=== PATIENT | female | born 2000 | race Two or more races ===

== ENCOUNTER → 2024-04-21 | Outpatient (CLI) | payer BC, SELFPAY ==
[2024-04-21 12:12] LABS: Basophils % (Auto) 0 % (0-2.5); Eosinophils % (Auto) 0 % (0-10); Hematocrit 33.8 % (36.0-46.0); Hemoglobin 11.6 g/dL (12.0-16.0); Immature Granulocytes % (Auto) 2 % (0-0); Immature Granulocytes Auto 0.17 Thou/mm3 (0.00-0.00); Lymphocytes # (Auto) 1.5 Thou/mm3 (1.0-4.8); Lymphocytes % (Auto) 16 % (10-50); Mean Corpuscular HGB Conc 34.3 g/dl (31.0-37.0); Mean Corpuscular Volume 85 fL (80-100); Monocytes # (Auto) 0.8 Thou/mm3 (0.0-0.8); Monocytes % (Auto) 8 % (0-12); Neutrophils # (Auto) 6.6 Thou/mm3 (1.8-7.7); Neutrophils % (Auto) 73 % (37-80); Nucleated Red Blood Cell % 0 /100 WBC (0); Platelet Count 309 Thou/mm3 (140-440); RDW Standard Deviation 44.4 fL (36.4-46.3); White Blood Count 9.1 Thou/mm3 (3.6-11.0)
[2024-04-21 12:21] LABS: Alanine Aminotransferase 12 U/L (10-49); Albumin, Serum 4.1 gm/dL (3.5-5.0); Albumin/Globulin Ratio 1.6 (1.2-2.2); Alkaline Phosphatase 72 U/L (46-116); Anion Gap 8 (7-16); Aspartate Amino Transferase 15 U/L (0-34); BUN/Creatinine Ratio 8 Ratio (12-20); Bilirubin,Total 0.7 mg/dL (0.3-1.2); Blood Urea Nitrogen 5 mg/dL (9-23); Calcium 9.3 mg/dL (8.3-10.6); Calcium (Corrected) 9.3 mg/dL (8.5-10.1); Carbon Dioxide 24.3 mMol/L (20.0-31.0); Chloride 105 mMol/L (98-107); Creatinine (Component) 0.6 mg/dL (0.6-1.3); Fibrinogen 596 mg/dL (175-375); Globulin 2.6 gm/dL (2.3-3.5); Glucose 101 mg/dL (74-106); INR 0.9 (0.9-1.3); Osmolality,Calculated 271 (275-295); Potassium 3.6 mMol/L (3.4-5.1); Prothrombin Time 10.3 Seconds (9.0-12.2); Sodium 137 mMol/L (136-145); Total Protein 6.7 gm/dL (5.7-8.2); eGFR > 60 See Note
[2024-04-26 22:03] LABS: Sjogren's antibody (SS-A) <1.0 NEG AI (<1.0 NEGATIVE)
[2024-04-27 07:01] LABS: Sjogren's Antibody (SS-B) <1.0 NEG AI (<1.0 NEGATIVE)
== END | disposition home or self-care (01) ==
LOC: COPL 11:17
PROVIDERS: PCP Registered Nurse Community Health; Referring Provider Physician Assistant Medical; Visit Provider Physician Assistant Medical
DX: M34.1 CR(E)ST syndrome (principal)
CPT/HCPCS: 36415; 80053; 84550; 85025; 85384; 85610; 85730; 86235

== ENCOUNTER 2024-06-23 12:40 | Outpatient (CLI) | payer MEDICAID, SELFPAY ==
[2024-06-23 12:40] VITALS: BP 126/69; PULSE 82; RESP 18; RESP 99; TEMP 37
[2024-06-23 13:36] VITALS: BMI 32.1
== END 2024-06-23 13:50 | disposition home or self-care (01) ==
LOC: S4S1 12:41 → S4SX 12:41
PROVIDERS: Referring Provider Specialist; Visit Provider Specialist
DX: O36.8130 Decreased fetal movements, third trimester, not applicable or unspecified (principal); Z3A.31 31 weeks gestation of pregnancy
CPT/HCPCS: 59025

== ENCOUNTER 2024-07-04 22:28 | Observation (INO) | payer MEDICAID, SELFPAY ==
[2024-07-04] VITALS (10 sets, daily range): BP systolic 125; BP diastolic 81; PULSE 80–114; RESP 18; TEMP 36.7; O2SAT 94–99; BMI 32.3
[2024-07-04] MEDS: TERBUTALINE SULF INJ 1 MG/ML VIAL 0.25 MG SC (23:31)
[2024-07-04 23:40] LABS: Collection Type, Urine Clean Catch
[2024-07-05] VITALS (8 sets, daily range): PULSE 86–103; O2SAT 98–100
[2024-07-05 00:04] LABS: Bilirubin,Urine Negative (Negative); Blood,Urine Negative (Negative); Clarity,Urine Turbid (Clear/Hazy); Color,Urine Lt-Yellow (Lt Yel-Yel); Glucose, Urine Negative (Negative); Ketones,Urine 1+ (Negative); Leukocyte Esterase,Urine Negative (Negative); Nitrite,Urine Negative (Negative); Protein,Urine Negative (Neg - Trace); RBC,Urine 3 /hpf (0-3); Specific Gravity,Urine 1.016 (1.001-1.035); Squamous Epithelial Cell,Urine 8 /hpf (0-5); Urobilinogen,Urine Negative mg/dL (0.0-1.0); WBC,Urine 5 /hpf (0-5)
[2024-07-05 00:11] LABS: FFN Specimen Descripton Bloody/Pink/Red
[2024-07-05] MEDS: BETAMET ACET/BETAMET NA PH (Celestone) 6 MG/ML VIAL 12 MG IM (02:04)
== END 2024-07-05 02:12 | disposition home or self-care (01) ==
PROVIDERS: Admitting Provider Specialist; Visit Provider Specialist
DX: O26.893 Other specified pregnancy related conditions, third trimester (principal); Z3A.33 33 weeks gestation of pregnancy; R10.30 Lower abdominal pain, unspecified
CPT/HCPCS: 59025; 59899; 81001; 82731; 96372; J0702; J3105

== ENCOUNTER 2024-07-05 21:17 | Outpatient (CLI) | payer MEDICAID, SELFPAY ==
[2024-07-05 21:23] VITALS: BP 114/62; PULSE 89; RESP 17; RESP 98; TEMP 36.9
[2024-07-05 21:26] VITALS: TEMP 36.9; BMI 32.2
[2024-07-05] MEDS: BETAMET ACET/BETAMET NA PH (Celestone) 6 MG/ML VIAL 12 MG IM (22:10)
== END 2024-07-05 22:17 | disposition home or self-care (01) ==
LOC: S4S1 21:20 → S4SX 21:31
PROVIDERS: Referring Provider Specialist; Visit Provider Specialist
DX: Z34.03 Encounter for supervision of normal first pregnancy, third trimester (principal); Z36.9 Encounter for antenatal screening, unspecified; Z3A.33 33 weeks gestation of pregnancy
CPT/HCPCS: 59025; 96372; J0702

== ENCOUNTER 2024-07-12 20:10 | Observation (INO) | payer MEDICAID, SELFPAY ==
[2024-07-12] VITALS (40 sets, daily range): BP systolic 115–129; BP diastolic 66–84; PULSE 105–151; RESP 24–98; TEMP 37.4–38.3; O2SAT 89–100; BMI 31.9
[2024-07-12] MEDS: RINGERS LACTATED 1000 ML 1,000 ML 100 ML IV ×2 (20:40→22:40)
[2024-07-12 20:45] LABS: ROM Kit Lot # 57809118; ROM Swab Mixed By: MARTB3; Swb Mxed in Solvent 1 min? Yes
--- NOTE | 2024-07-12 20:46 | XR_ITS ---
Examination: Biophysical profile, ultrasound Date and time of exam: July 12, 2024 10:20 PM Indications: Pelvic contractions and fever today Technique: Multiple transabdominal sonographic images of the pelvis abdomen obtained. Attention is directed to the breathing movement, gross body movement, amniotic fluid volume and tone. Findings: Amniotic fluid index 18.8 cm Total biophysical profile is 8 of 8. breathing movement is 2. Gross body movement is 2. tone is 2. Qualitative amniotic fluid volume is 2 Impression: Biophysical profile is 8 of 8.
--- NOTE | 2024-07-12 20:46 | XR_ITS ---
Examination: Complete OB ultrasound greater than 14 weeks Date and time of exam: July 12, 2024 at 2155 hrs. Indications: Pelvic contractions and fever today Findings: Viable intrauterine single fetus with single amniotic sac presentation cephalic Cardiac motion 137 BPM Placenta fundal grade 1 Umbilical cord insertion seen Amniotic fluid index 16.5 cm Cervix 3.4 cm Ovaries obscured by bowel gas. Composite estimated gestational age based on BPD, head circumference, abdominal circumference, femur length is 34 weeks 2 days Estimated weight 2375.3 g. Survey of intracranial anatomy, spinal anatomy, abdominal anatomy, four-chamber heart performed with no abnormalities identified. Impression: Viable intrauterine gestation cephalic presentation Estimated gestational age 34 weeks 2 days.
[2024-07-12 20:53] LABS: Rupture of Fetal Membranes Negative (Negative)
[2024-07-12 21:02] LABS: Collection Type, Urine Clean Catch
[2024-07-12 21:12] LABS: Basophils # (Auto) 0.1 Thou/mm3 (0.0-0.2); Basophils % (Auto) 0 % (0-2.5); Eosinophils % (Auto) 0 % (0-10); Hematocrit 38.6 % (36.0-46.0); Immature Granulocytes % (Auto) 3 % (0-0); Immature Granulocytes Auto 0.43 Thou/mm3 (0.00-0.00); Lymphocytes # (Auto) 1.6 Thou/mm3 (1.0-4.8); Lymphocytes % (Auto) 10 % (10-50); Mean Corpuscular HGB Conc 33.7 g/dl (31.0-37.0); Mean Corpuscular Hemoglobin 28.4 pg (25.0-35.0); Mean Corpuscular Volume 84 fL (80-100); Monocytes # (Auto) 1.5 Thou/mm3 (0.0-0.8); Monocytes % (Auto) 10 % (0-12); Neutrophils # (Auto) 11.9 Thou/mm3 (1.8-7.7); Neutrophils % (Auto) 77 % (37-80); Nucleated Red Blood Cell % 0 /100 WBC (0); Platelet Count 271 Thou/mm3 (140-440); RDW Standard Deviation 44.4 fL (36.4-46.3); Red Blood Count 4.58 Miln/mm3 (4.00-5.20); White Blood Count 15.5 Thou/mm3 (3.6-11.0)
[2024-07-12] MEDS: fentaNYL CIT INJ 50 mCg/ML AMP 2ML 100 MCG IV (21:14)
[2024-07-12] MEDS: NIFEdipine 10 MG CAPSULE PO (21:15)
[2024-07-12 21:16] LABS: Bacteria,Urine Rare; Bilirubin,Urine Negative (Negative); Blood,Urine Negative (Negative); Clarity,Urine Clear (Clear/Hazy); Glucose, Urine Negative (Negative); Ketones,Urine 2+ (Negative); Leukocyte Esterase,Urine Positive (Negative); Nitrite,Urine Negative (Negative); Protein,Urine Trace (Neg - Trace); RBC,Urine 1 /hpf (0-3); Squamous Epithelial Cell,Urine 14 /hpf (0-5); Urobilinogen,Urine Negative mg/dL (0.0-1.0); WBC,Urine 5 /hpf (0-5)
[2024-07-12 21:19] LABS: Color,Urine Amber (Lt Yel-Yel)
[2024-07-12] MEDS: ACETAMINOPHEN 325 MG TABLET 650 MG PO (21:25)
--- NOTE | 2024-07-12 21:26 | XR_ITS ---
Examination: AP chest single view Technique one AP portable upright chest single view Exam date and time: July 12, 2024 2133 hrs. Indications: Fever today Findings: Artifacts over the upper chest Normal heart size The osseous structures are intact Impression: Repeat this study without the artifacts over the upper chest
[2024-07-12 21:30] LABS: Alanine Aminotransferase 12 U/L (10-49); Albumin, Serum 4.2 gm/dL (3.5-5.0); Albumin/Globulin Ratio 1.4 (1.2-2.2); Alkaline Phosphatase 158 U/L (46-116); Anion Gap 12 (7-16); Aspartate Amino Transferase 15 U/L (0-34); BUN/Creatinine Ratio 13 Ratio (12-20); Blood Urea Nitrogen 8 mg/dL (9-23); Calcium 9.7 mg/dL (8.3-10.6); Calcium (Corrected) 9.7 mg/dL (8.5-10.1); Carbon Dioxide 21.3 mMol/L (20.0-31.0); Chloride 101 mMol/L (98-107); Creatinine (Component) 0.6 mg/dL (0.6-1.3); Glucose 77 mg/dL (74-106); LDH (Lactate Dehydrogenase) 200 U/L (120-246); Osmolality,Calculated 265 (275-295); Potassium 3.8 mMol/L (3.4-5.1); Sodium 134 mMol/L (136-145); Total Protein 7.2 gm/dL (5.7-8.2); eGFR > 60 See Note
[2024-07-12 21:40] LABS: FFN Specimen Descripton Clr Colrless Aqueous; Fetal Fibronectin Negative (Negative)
[2024-07-12 21:44] LABS: Fibrinogen 574 mg/dL (175-375); INR 1.2 (0.9-1.3); Partial Thromboplastin Time 26.2 Seconds (22.0-36.0); Prothrombin Time 12.6 Seconds (9.0-12.2)
[2024-07-12 22:01] LABS: Lactate (Lactic Acid) 1.2 mMol/L (0.4-2.0)
--- NOTE | 2024-07-12 22:05 | EKG_ITS ---
[facility] Test Date: 2024-07-12 Pat Name: SHAINA URBINA Department: Room: S945-A Gender: Female Manufacturing Operations Manager: GEORGIE : 2000 Requested By: Darwin Esparza Order Number: [id number] Reading MD: Darwin Esparza Measurements Intervals [place] Rate: 136 P: 41 [place]: 157 QRS: 224 QRSD: 98 T: 212 QT: 331 QTc: 499 Interpretive Statements SINUS TACHYCARDIA WITH FREQUENT VENTRICULAR PREMATURE COMPLEXES MARKED RIGHT AXIS DEVIATION [QRS AXIS > 100] PATTERN CONSISTENT WITH PULMONARY DISEASE MARKED ST DEPRESSION, CONSIDER SUBENDOCARDIAL INJURY [0.2+ mV ST DEPRESSION] Compared to ECG 11/20/2023 09:19:21 Ventricular premature complex(es) now present Right-axis deviation now present ST (T wave) deviation now present Sinus rhythm no longer present Sinus arrhythmia no longer present /store/S0/[id number]/ecg/[id number].pdf
[2024-07-12 22:14] LABS: COVID-19 Antigen (In-House) Negative (Negative); Influenza A Ag Negative; Influenza B Ag Negative
[2024-07-12 23:15] LABS: Procalcitonin 0.06 ng/ml (0.0-0.49)
[2024-07-13] VITALS (90 sets, daily range): BP systolic 105–140; BP diastolic 56–76; PULSE 96–136; RESP 16–22; TEMP 36.6–38.1; O2SAT 92–100
[2024-07-13] MEDS: SODIUM CHLORIDE 0.9% 1000 ML 1,000 ML 125 ML IV ×3 (01:14→21:30)
[2024-07-13] MEDS: CEFTRIAXONE IV (01:28)
[2024-07-13] MEDS: SODIUM CHLORIDE 0.9% IV (01:28)
[2024-07-13] MEDS: NIFEdipine 10 MG CAPSULE PO ×5 (02:03→21:33)
[2024-07-13] MEDS: ACETAMINOPHEN 325 MG TABLET 650 MG PO ×3 (03:10→22:12)
[2024-07-13 06:55] LABS: Basophils # (Auto) 0.1 Thou/mm3 (0.0-0.2); Basophils % (Auto) 1 % (0-2.5); Eosinophils % (Auto) 0 % (0-10); Hematocrit 31.8 % (36.0-46.0); Hemoglobin 10.8 g/dL (12.0-16.0); Immature Granulocytes % (Auto) 3 % (0-0); Lymphocytes % (Auto) 8 % (10-50); Mean Corpuscular Hemoglobin 28.6 pg (25.0-35.0); Mean Corpuscular Volume 84 fL (80-100); Monocytes # (Auto) 1.4 Thou/mm3 (0.0-0.8); Monocytes % (Auto) 11 % (0-12); Neutrophils # (Auto) 9.3 Thou/mm3 (1.8-7.7); Neutrophils % (Auto) 77 % (37-80); Nucleated Red Blood Cell % 0 /100 WBC (0); Platelet Count 226 Thou/mm3 (140-440); RDW Standard Deviation 44.5 fL (36.4-46.3); Red Blood Count 3.78 Miln/mm3 (4.00-5.20); White Blood Count 12.2 Thou/mm3 (3.6-11.0)
[2024-07-13 07:08] LABS: Alanine Aminotransferase 9 U/L (10-49); Albumin, Serum 3.3 gm/dL (3.5-5.0); Albumin/Globulin Ratio 1.4 (1.2-2.2); Alkaline Phosphatase 129 U/L (46-116); Anion Gap 10 (7-16); Aspartate Amino Transferase 16 U/L (0-34); BUN/Creatinine Ratio 10 Ratio (12-20); Bilirubin,Total 0.8 mg/dL (0.3-1.2); Blood Urea Nitrogen 6 mg/dL (9-23); Calcium 8.7 mg/dL (8.3-10.6); Calcium (Corrected) 9.3 mg/dL (8.5-10.1); Carbon Dioxide 21.4 mMol/L (20.0-31.0); Chloride 104 mMol/L (98-107); Creatinine (Component) 0.6 mg/dL (0.6-1.3); Estimated Creatinine Clearance 145.2 mL/min (>60); Globulin 2.3 gm/dL (2.3-3.5); Glucose 118 mg/dL (74-106); Osmolality,Calculated 268 (275-295); Potassium 3.5 mMol/L (3.4-5.1); Sodium 135 mMol/L (136-145); Total Protein 5.6 gm/dL (5.7-8.2); eGFR > 60 See Note
--- NOTE | 2024-07-13 10:20 | ESPR_ITS ---
RE: SHAINA URBINA : 2000 DATE OF SERVICE: 07/13/2024 SUBJECTIVE: The patient is no longer having abdominal pain. The only discomfort she has is at the superior part of the buttocks crease where she reports tenderness and thickening of the skin in that area. She denies feeling any contractions. She denies any abdominal pain. She reports normal movement. She denies any leaking or bleeding. She denies any dysuria or flank pain. She denies any headache, stiff neck, photophobia, sore throat, cough, chest pain, or shortness of breath. She denies any nausea, vomiting, or diarrhea. She has got a good appetite and is tolerating a regular diet. She is passing flatus and voiding without difficulty. OBJECTIVE: Vitals Signs: Blood pressure 117/67, heart rate 109, respirations 18, T-max is 100.9. Temperature now is 98.0. HEENT: Oropharynx and sclerae are clear. Lungs: Clear to auscultation bilaterally. Heart: Regular rhythm. Mild tachycardia. Abdomen: Fundus consistent with 34 weeks gestation, nontender, soft. No guarding, rebound, or rigidity. Flank: No CVA tenderness. Skin: Slight thickening and erythema in the buttocks crease. LABORATORY DATA: Hemoglobin is 10.8, white blood cell count is 12.2. Creatinine is 0.6. fibronectin is negative. AmniSure is negative. Rapid influenza A test is negative. Rapid COVID test is negative. ASSESSMENT: 1. Intrauterine at 34 weeks and 3 days. 2. Pilonidal cyst with possible early abscess. 3. Urinary tract infection. 4. Threatened labor, status post betamethasone on 07/04/2024 and 07/05/2024. PLAN: Continue IV antibiotics in the form of Rocephin 1 g q.12h. Follow blood culture and urine culture results. Consider continue nifedipine 10 mg p.o. q.4h. for tocolysis. I discussed with the patient the nature of her condition and recommended treatment plan. All questions are answered. DT: 08:06:50 TT: 10:18:00 Ref: [id number] - TID: [id number]
[2024-07-13 11:01] LABS: INR 0.9 (0.9-1.3); Partial Thromboplastin Time 27.9 Seconds (22.0-36.0); Prothrombin Time 10.2 Seconds (9.0-12.2)
[2024-07-13 11:28] LABS: Fibrinogen 660 mg/dL (175-375)
[2024-07-13] MEDS: cefTRIAXone 1,000 MG in SODIUM CHLORIDE 0.9% (P) 50 ML 100 MG IV (13:48)
[2024-07-13] MEDS: metroNIDAZOLE/NS 500 MG IVPB 500 MG/100 ML BAG 200 MG IV (21:32)
[2024-07-14] VITALS (59 sets, daily range): BP systolic 101–123; BP diastolic 54–72; PULSE 71–136; RESP 18; TEMP 36.4–37.6; O2SAT 96–100
[2024-07-14] MEDS: cefTRIAXone 1,000 MG in SODIUM CHLORIDE 0.9% (P) 50 ML 100 MG IV ×2 (01:29→13:32)
[2024-07-14] MEDS: NIFEdipine 10 MG CAPSULE PO ×6 (01:29→21:51)
[2024-07-14] MEDS: ACETAMINOPHEN 325 MG TABLET 650 MG PO ×2 (01:59→06:04)
[2024-07-14 05:21] LABS: Basophils # (Auto) 0.1 Thou/mm3 (0.0-0.2); Basophils % (Auto) 1 % (0-2.5); Eosinophils % (Auto) 0 % (0-10); Hematocrit 34.6 % (36.0-46.0); Hemoglobin 11.6 g/dL (12.0-16.0); Immature Granulocytes % (Auto) 5 % (0-0); Lymphocytes # (Auto) 1.4 Thou/mm3 (1.0-4.8); Lymphocytes % (Auto) 13 % (10-50); Mean Corpuscular HGB Conc 33.5 g/dl (31.0-37.0); Mean Corpuscular Hemoglobin 28.4 pg (25.0-35.0); Mean Corpuscular Volume 85 fL (80-100); Monocytes # (Auto) 1.6 Thou/mm3 (0.0-0.8); Monocytes % (Auto) 15 % (0-12); Neutrophils # (Auto) 6.9 Thou/mm3 (1.8-7.7); Neutrophils % (Auto) 66 % (37-80); Nucleated Red Blood Cell % 0 /100 WBC (0); Platelet Count 200 Thou/mm3 (140-440); RDW Standard Deviation 45.9 fL (36.4-46.3); Red Blood Count 4.08 Miln/mm3 (4.00-5.20); White Blood Count 10.5 Thou/mm3 (3.6-11.0)
[2024-07-14 05:57] LABS: Alanine Aminotransferase 9 U/L (10-49); Albumin, Serum 3.6 gm/dL (3.5-5.0); Albumin/Globulin Ratio 1.5 (1.2-2.2); Alkaline Phosphatase 140 U/L (46-116); Anion Gap 11 (7-16); Aspartate Amino Transferase 15 U/L (0-34); BUN/Creatinine Ratio 10 Ratio (12-20); Bilirubin,Total 0.6 mg/dL (0.3-1.2); Blood Urea Nitrogen 6 mg/dL (9-23); Calcium 9.3 mg/dL (8.3-10.6); Calcium (Corrected) 9.6 mg/dL (8.5-10.1); Carbon Dioxide 21.4 mMol/L (20.0-31.0); Chloride 104 mMol/L (98-107); Creatinine (Component) 0.6 mg/dL (0.6-1.3); Estimated Creatinine Clearance 145.2 mL/min (>60); Globulin 2.4 gm/dL (2.3-3.5); Glucose 97 mg/dL (74-106); Osmolality,Calculated 269 (275-295); Potassium 4.1 mMol/L (3.4-5.1); Sodium 136 mMol/L (136-145); eGFR > 60 See Note
[2024-07-14] MEDS: metroNIDAZOLE/NS 500 MG IVPB 500 MG/100 ML BAG 200 MG IV ×3 (06:05→21:51)
--- NOTE | 2024-07-14 07:15 | ESHP_ITS ---
RE: SHAINA URBINA : 2000 DATE OF ADMISSION: 07/12/2024 HISTORY OF PRESENT ILLNESS: This is a 23-year-old 1 para 0 with due date of 08/21/2024 with intrauterine at 34 weeks and 2 days, who presents to labor and delivery complaining of abdominal pain and is noted to have tachycardia with temperature of 100.9. She has a regular contractions. She denies any leaking or bleeding. She reports normal movement. She denies any nausea or vomiting. The patient was treated for positive fibronectin for threatened labor on 07/04/2024 and 07/05/2024 with betamethasone. The patient's care was complicated by abnormally elevated alpha-fetoprotein. She underwent maternal medicine ultrasound on 05/13/2024, which revealed normal anatomy. ALLERGIES: NO KNOWN DRUG ALLERGIES. MEDICATIONS: 1. multivitamin 1 p.o. daily. 2. Aspirin 81 mg 1 p.o. daily. SOCIAL HISTORY: She is . She denies any alcohol or drug use or smoking. PAST MEDICAL HISTORY: CREST syndrome and acne. FAMILY HISTORY: Breast cancer and heart disease. PAST SURGICAL HISTORY: Denies. REVIEW OF SYSTEMS: She denies any chest pain, palpitations, cough, fever, shortness of breath or lower extremity pain. PHYSICAL EXAMINATION: VITAL SIGNS: Blood pressure is 122/66, heart rate 122, respirations 18, temperature is 100.9, and pulse oximetry is 100% on room air. LUNGS: Clear to auscultation bilaterally. HEART: Regular rate and rhythm. ABDOMEN: Tender. No guarding, rebound or rigidity. EXTREMITIES: Nontender. SKIN: No gross rashes or lesions. NEUROLOGIC: No focal deficit. ASSESSMENT AND PLAN: Intrauterine at 34 weeks and 2 days, abdominal pain, and fever. Labor. Septic workup. OB ultrasound. Continuous monitoring. DT: 21:22:47 TT: 21:57:00 Ref: [id number] - TID: [id number] MTDD
[2024-07-14 07:38] LABS: INR 0.9 (0.9-1.3); Prothrombin Time 10.1 Seconds (9.0-12.2)
--- NOTE | 2024-07-14 07:38 | ESPR_ITS ---
Documentation for date of: 07/14/24 SUPERVISOR COREMAKER Subjective Subjective Interval history: Pain and drainage from upper gluteal crease. No abdominal pain. No vaginal leaking or bleeding. Does not feel any contractions. Exam Vital Signs Temp Pulse Resp BP Pulse Ox 97.6 F 71 18 101/63 97 07/14/24 06:04 07/14/24 06:03 07/14/24 06:01 07/14/24 06:03 07/14/24 06:22 Routine HEENT Exam Comments: Oropharynx sclera clear Routine Respiratory Exam Comments: CTA B/L Routine Cardiovascular Exam Comments: RRR Routine Abdominal Exam Comments: gravid , 34 cm , + FCA. Soft. nontender. Additional findings Additional findings: Upper Gluteal Crease: 3 x 3 cm tender abscess draining purulent material. Urinary Catheter Management Cath placed during this visit: no SUPERVISOR COREMAKER - PN: Obj Data Labs 07/14/24 04:56 07/14/24 04:56 Labs: Laboratory Results - last 24 hr 07/13/24 07/13/24 07/14/24 08:32 19:33 04:56 WBC 10.5 RBC 4.08 Hgb 11.6 L Hct 34.6 L MCV 85 MCH 28.4 MCHC 33.5 RDW Std Deviation 45.9 Plt Count 200 Neut % (Auto) 66 Lymph % (Auto) 13 Reynolds % (Auto) 15 H Eos % (Auto) 0 Baso % (Auto) 1 Neut # (Auto) 6.9 Lymph # (Auto) 1.4 Reynolds # (Auto) 1.6 H Eos # (Auto) 0.0 Baso # (Auto) 0.1 Immature Gran # (Auto) 0.50 H Absolute Nucleated RBC 0.00 Immature Gran % 5 H Nucleated RBC % 0 PT 10.2 INR 0.9 APTT 27.9 26.0 Fibrinogen 660 H* Sodium 136 Potassium 4.1 D Chloride 104 Carbon Dioxide 21.4 Anion Gap 11 BUN 6 L Creatinine 0.6 Estim Creat Clear Calc 145.2 eGFR > 60 BUN/Creatinine Ratio 10 L Glucose 97 Calculated Osmolality 269 L Calcium 9.3 Corrected Calcium 9.6 Total Bilirubin 0.6 AST 15 ALT 9 L Alkaline Phosphatase 140 H Total Protein 6.0 Albumin 3.6 Globulin 2.4 Albumin/Globulin Ratio 1.5 Impressions Impression: IUP 34wks Threatened labor Pilonidal cyst abscess draining Case Discussed with Gen Surg Dr Hartmann and as long as abscess is draining no need for incision and drainage Plan to contine Rocephin and Metronidazole with possible discharge home tomorrow SUPERVISOR COREMAKER - A/P Time Spent With Patient Time: Total time spent is greater than 50% in coordination of care (as documented) at patient's floor/unit and/or counseling patient: Time with patient: 25 - 35 minutes
[2024-07-14 09:11] LABS: Fibrinogen 689 mg/dL (175-375)
[2024-07-15] VITALS (12 sets, daily range): BP systolic 96–118; BP diastolic 56–68; PULSE 73–119; RESP 16; TEMP 36.4–37.2; O2SAT 99
[2024-07-15] MEDS: cefTRIAXone 1,000 MG in SODIUM CHLORIDE 0.9% (P) 50 ML 100 MG IV (01:30)
[2024-07-15] MEDS: SODIUM CHLORIDE 0.9% 1000 ML 1,000 ML 125 ML IV (01:31)
[2024-07-15] MEDS: NIFEdipine 10 MG CAPSULE PO ×3 (01:54→09:49)
[2024-07-15] MEDS: metroNIDAZOLE/NS 500 MG IVPB 500 MG/100 ML BAG 200 MG IV (06:04)
[2024-07-15 06:08] LABS: Basophils % (Auto) 0 % (0-2.5); Eosinophils # (Auto) 0.1 Thou/mm3 (0.0-0.5); Eosinophils % (Auto) 1 % (0-10); Hematocrit 33.3 % (36.0-46.0); Hemoglobin 11.1 g/dL (12.0-16.0); Immature Granulocytes % (Auto) 3 % (0-0); Immature Granulocytes Auto 0.26 Thou/mm3 (0.00-0.00); Lymphocytes # (Auto) 1.5 Thou/mm3 (1.0-4.8); Lymphocytes % (Auto) 19 % (10-50); Mean Corpuscular HGB Conc 33.3 g/dl (31.0-37.0); Mean Corpuscular Hemoglobin 28.2 pg (25.0-35.0); Mean Corpuscular Volume 85 fL (80-100); Monocytes % (Auto) 13 % (0-12); Neutrophils # (Auto) 5.2 Thou/mm3 (1.8-7.7); Neutrophils % (Auto) 64 % (37-80); Nucleated Red Blood Cell % 0 /100 WBC (0); Platelet Count 216 Thou/mm3 (140-440); Red Blood Count 3.93 Miln/mm3 (4.00-5.20); White Blood Count 8.1 Thou/mm3 (3.6-11.0)
[2024-07-15] MEDS: ACETAMINOPHEN 325 MG TABLET 650 MG PO (10:00)
--- NOTE | 2024-07-15 13:02 | PC.NURSE ---
RN AT BEDSIDE AT 12:40 GOING OVER DISCHARGE PAPERWORK. PT EDUCATED ON KICK COUNTS AND SIGNS AND SYMPTOMS OF LABOR. RN USED TEACHBACK METHOD TO ENSURE PT UNDERSTANDS EDUCATION. PT STABLE UPON DISCHARGE. PT'S MOTHER ACCOMPANIES PT AND RN DOWNSTAIRS TO THEIR PRIVATE VEHICLE.
--- NOTE | 2024-07-15 20:48 | ESPR_ITS ---
RE: SHAINA URBINA : 2000 DATE OF SERVICE: 07/15/2024 SUBJECTIVE: The patient says she has no more back pain. She says that the pilonidal cyst has completely drained. She denies any contractions. She reports normal movement. She denies any leaking or bleeding. She denies any fever or chills. OBJECTIVE: Vital Signs: Stable. She is afebrile. Lungs: Clear to auscultation bilaterally. Heart: Regular rate and rhythm. Abdomen: Fundus nontender, 34-week size, palpable movement. Back: Pilonidal cyst resolved, nontender. No drainage noted. Extremities: Nontender. ASSESSMENT: 1. Intrauterine at 34 weeks. 2. Urinary tract infection. 3. Pilonidal cyst abscess, resolving. 4. Threatened labor. PLAN: Discharge home with cefuroxime 500 mg one p.o. b.i.d. for 7 days. Followup in the office within 7 days. Discontinue nifedipine tocolysis. Discharge instructions given. Follow up in the office within 7 days. DT: 19:26:18 TT: 20:47:00 Ref: [id number] - TID: [id number]
--- NOTE | 2024-07-15 21:04 | ESDS_ITS ---
RE: SHAINA URBINA : 2000 DATE OF ADMISSION: 07/12/2024 DATE OF DISCHARGE: 07/15/2024 12:48 DATE OF ADMISSION: 07/12/2024 DATE OF DISCHARGE: 07/15/2024 HOSPITAL COURSE: This is a 23-year-old with intrauterine at 34 weeks who presented to labor and delivery complaining of abdominal pain and was noted to have a fever of 100.9 with an elevated white blood cell count of 15,000. She was found to be viji and she underwent tocolysis with a calcium channel musa. Subsequently, she was found to have drainage of a pilonidal cyst, which was cultured and found to have multiple skin emanuel. She was placed on Rocephin and metronidazole and after 72 hours of antibiotics, the pilonidal cyst completely drained and she was having no more back pain. She became afebrile once the antibiotics were initiated. Her white blood cell count normalized. Her contractions resolved with tocolysis with a calcium channel musa. She had received betamethasone a week ago and so that was not repeated. DISCHARGE DIAGNOSES: Intrauterine at 34 weeks, threatened labor, urinary tract infection, pilonidal cyst abscess. DT: 19:29:03 TT: 21:02:00 Ref: [id number] - TID: [id number]
== END 2024-07-15 12:48 | disposition home or self-care (01) ==
PROVIDERS: Admitting Provider Specialist; Visit Provider Specialist
DX: O23.43 Unspecified infection of urinary tract in pregnancy, third trimester (principal); N39.0 Urinary tract infection, site not specified; O99.713 Diseases of the skin and subcutaneous tissue complicating pregnancy, third trimester; L05.01 Pilonidal cyst with abscess; O47.03 False labor before 37 completed weeks of gestation, third trimester; Z3A.34 34 weeks gestation of pregnancy; O26.893 Other specified pregnancy related conditions, third trimester; R77.2 Abnormality of alphafetoprotein; R00.0 Tachycardia, unspecified; R23.4 Changes in skin texture
CPT/HCPCS: 36415; 59025; 59899; 71045; 76805; 76819; 80053; 81001; 82731; 83605; 83615; 84112; 84145; 84550; 85025; 85384; 85610; 85730; 86850; 86900; 86901; 86923; 87040; 87070; 87086; 87205; 87502; 87811; 93005; 96361; 96365; 96366; J0696; J3010; J3490; J7030; J7050; J7120; A9270; J1836

== ENCOUNTER 2024-08-01 12:50 | Observation (INO) | payer MEDICAID, SELFPAY ==
[2024-08-01 12:50] VITALS: BP 134/96; PULSE 95; RESP 18; RESP 99; TEMP 36.7
[2024-08-01 13:00] VITALS: BP 134/96; PULSE 95
[2024-08-01 13:39] LABS: ROM Kit Lot # 578010271
[2024-08-01 13:40] LABS: ROM Swab Mixed By: AYONJ; Rupture of Fetal Membranes Negative (Negative); Swb Mxed in Solvent 1 min? Yes
[2024-08-01 15:07] VITALS: BMI 31.8
[2024-08-01 15:25] VITALS: BP 121/80; PULSE 98; RESP 16; TEMP 36.8; O2SAT 98
[2024-08-01 15:43] LABS: Collection Type, Urine Clean Catch
[2024-08-01 15:58] LABS: Bilirubin,Urine Negative (Negative); Blood,Urine Negative (Negative); Clarity,Urine Clear (Clear/Hazy); Color,Urine Lt-Yellow (Lt Yel-Yel); Glucose, Urine Negative (Negative); Ketones,Urine Negative (Negative); Leukocyte Esterase,Urine Negative (Negative); Nitrite,Urine Negative (Negative); PH,Urine 6.5 (5.0-7.0); Protein,Urine Negative (Neg - Trace); RBC,Urine < 1 /hpf (0-3); Specific Gravity,Urine 1.018 (1.001-1.035); Squamous Epithelial Cell,Urine 3 /hpf (0-5); Urobilinogen,Urine Negative mg/dL (0.0-1.0); WBC,Urine 1 /hpf (0-5)
== END 2024-08-01 15:30 | disposition home or self-care (01) ==
PROVIDERS: Admitting Provider Specialist; Visit Provider Specialist
DX: O47.1 False labor at or after 37 completed weeks of gestation (principal); Z3A.37 37 weeks gestation of pregnancy
CPT/HCPCS: 59025; 59899; 81001; 84112

== ENCOUNTER 2024-08-07 23:23 | Inpatient (IN) | payer MEDICAID, SELFPAY ==
[2024-08-07 23:34] VITALS: BP 147/94; PULSE 77; RESP 17; RESP 99; TEMP 36.4
[2024-08-07 23:40] VITALS: BP 147/94; PULSE 77
[2024-08-07 23:41] VITALS: BP 133/87; PULSE 81
[2024-08-07 23:50] VITALS: BMI 34.2
[2024-08-08] VITALS (92 sets, daily range): BP systolic 99–174; BP diastolic 52–106; PULSE 61–169; RESP 16–18; TEMP 36.6–36.9; O2SAT 79–100
[2024-08-08 00:45] LABS: Collection Type, Urine Clean Catch
[2024-08-08] MEDS: RINGERS LACTATED 500 ML 500 ML 999 ML IV (00:54)
[2024-08-08 00:57] LABS: Basophils # (Auto) 0.1 Thou/mm3 (0.0-0.2); Basophils % (Auto) 0 % (0-2.5); Eosinophils % (Auto) 0 % (0-10); Hematocrit 37.1 % (36.0-46.0); Hemoglobin 12.5 g/dL (12.0-16.0); Immature Granulocytes % (Auto) 2 % (0-0); Immature Granulocytes Auto 0.32 Thou/mm3 (0.00-0.00); Lymphocytes # (Auto) 3.6 Thou/mm3 (1.0-4.8); Lymphocytes % (Auto) 26 % (10-50); Mean Corpuscular HGB Conc 33.7 g/dl (31.0-37.0); Mean Corpuscular Hemoglobin 28.3 pg (25.0-35.0); Mean Corpuscular Volume 84 fL (80-100); Monocytes # (Auto) 1.3 Thou/mm3 (0.0-0.8); Monocytes % (Auto) 10 % (0-12); Neutrophils # (Auto) 8.3 Thou/mm3 (1.8-7.7); Neutrophils % (Auto) 61 % (37-80); Nucleated Red Blood Cell % 0 /100 WBC (0); Platelet Count 219 Thou/mm3 (140-440); RDW Standard Deviation 46.7 fL (36.4-46.3); Red Blood Count 4.42 Miln/mm3 (4.00-5.20); White Blood Count 13.6 Thou/mm3 (3.6-11.0)
[2024-08-08] MEDS: TERBUTALINE SULF INJ 1 MG/ML VIAL 0.25 MG SC (00:57)
[2024-08-08 01:06] LABS: Bilirubin,Urine Negative (Negative); Blood,Urine 3+ (Negative); Clarity,Urine Turbid (Clear/Hazy); Color,Urine Yellow (Lt Yel-Yel); Glucose, Urine Negative (Negative); Ketones,Urine Negative (Negative); Leukocyte Esterase,Urine Negative (Negative); Nitrite,Urine Negative (Negative); PH,Urine 6.5 (5.0-7.0); Protein,Urine 1+ (Neg - Trace); RBC,Urine 776 /hpf (0-3); Specific Gravity,Urine 1.023 (1.001-1.035); Squamous Epithelial Cell,Urine 10 /hpf (0-5); Urobilinogen,Urine Negative mg/dL (0.0-1.0); WBC,Urine 5 /hpf (0-5)
[2024-08-08 01:09] LABS: Alanine Aminotransferase 12 U/L (10-49); Albumin, Serum 3.8 gm/dL (3.5-5.0); Albumin/Globulin Ratio 1.4 (1.2-2.2); Alkaline Phosphatase 171 U/L (46-116); Anion Gap 11 (7-16); Aspartate Amino Transferase 16 U/L (0-34); BUN/Creatinine Ratio 17 Ratio (12-20); Bilirubin,Total 0.7 mg/dL (0.3-1.2); Blood Urea Nitrogen 12 mg/dL (9-23); Calcium (Corrected) 9.2 mg/dL (8.5-10.1); Carbon Dioxide 21.1 mMol/L (20.0-31.0); Chloride 106 mMol/L (98-107); Creatinine (Component) 0.7 mg/dL (0.6-1.3); Estimated Creatinine Clearance 169.8 mL/min (>60); Globulin 2.7 gm/dL (2.3-3.5); Glucose 90 mg/dL (74-106); Osmolality,Calculated 275 (275-295); Potassium 3.8 mMol/L (3.4-5.1); Sodium 138 mMol/L (136-145); Total Protein 6.5 gm/dL (5.7-8.2); Uric Acid 5.4 mg/dL (3.1-7.8); eGFR > 60 See Note
[2024-08-08 01:27] LABS: Syphilis Nonreactive (Nonreactive)
[2024-08-08 01:40] LABS: Fibrinogen 503 mg/dL (175-375); INR 0.9 (0.9-1.3); Partial Thromboplastin Time 25.6 Seconds (22.0-36.0); Prothrombin Time 9.7 Seconds (9.0-12.2)
[2024-08-08] MEDS: RINGERS LACTATED 1000 ML 1,000 ML 125 ML IV (01:59)
--- NOTE | 2024-08-08 05:02 | PD.LDHP ---
Documentation for date of: 08/08/24 OB Labor/Induct. HPI History of Present Illness Comments: H and P dictated on STAT line #9 in [place] [id number] Meds Home Medications and Allergies Home Medications ?Medication ?Instructions ?Recorded ?Confirmed ?Type folic acid 1 mg tablet 1,000 mcg PO DAILY 06/23/24 07/13/24 History vit no.95-ferrous 1 tab PO QDAY 06/23/24 07/13/24 History fumarate 28 mg-folic acid 800 mcg tablet () Allergies Allergy/AdvReac Type Severity Reaction Status Date / Time banana Allergy Mild ITCHING TO Verified 07/13/24 00:40 NECK AND EARS OB Exam Physical Exam Vital signs: Temp Pulse Resp BP Pulse Ox 97.6 F 114 H 17 126/60 100 08/07/24 23:34 08/08/24 04:46 08/07/24 23:34 08/08/24 04:46 08/08/24 05:01 OB Results Labs 08/08/24 00:02 08/08/24 00:02 Labs: Short CBC 08/08/24 Range/Units 00:02 WBC 13.6 H (3.6-11.0) Thou/mm3 Hgb 12.5 (12.0-16.0) g/dL Hct 37.1 (36.0-46.0) % Plt Count 219 (140-440) Thou/mm3 BMP 08/08/24 00:02 Sodium 138 Potassium 3.8 Chloride 106 Carbon Dioxide 21.1 BUN 12 Creatinine 0.7 Glucose 90 Calcium 9.0 Liver Function 08/08/24 Range/Units 00:02 Total Bilirubin 0.7 (0.3-1.2) mg/dL AST 16 (0-34) U/L ALT 12 (10-49) U/L Alkaline Phosphatase 171 H (46-116) U/L Albumin 3.8 (3.5-5.0) gm/dL Urine 08/08/24 Range/Units 00:02 Urine Color Yellow (Lt Yel-Yel) Urine Clarity Turbid A (Clear/Hazy) Urine pH 6.5 (5.0-7.0) Ur Specific [place] 1.023 (1.001-1.035) Urine Protein 1+ A (Neg - Trace) Urine Glucose (UA) Negative (Negative)
[2024-08-08] MEDS: MINERAL OIL 30 ML UDC TOP (05:44)
[2024-08-08] MEDS: BENZO/LANO/ALOE (Dermoplast) 60 GM CAN 1 SPRAY TOP (05:45)
[2024-08-08] MEDS: IBUPROFEN TAB 400 MG TABLET 800 MG PO (05:45)
[2024-08-08] MEDS: OXYTOCIN in NS 20 units 20 UNIT/1,000 ML BAG 125 UNIT IV (05:45)
--- NOTE | 2024-08-08 06:27 | OBDSUM_ITS ---
Data ([facility]) Data : 1 Para: 0 Term: 0 : 0 : 0 Delivery Data ([facility]) Labor Data ROM Date: 08/07/24 ROM Time: 22:22 Rupture Type: SROM Amniotic Fluid: Clear Delivery Data EDC: 08/21/24 EDC calculated by:: LMP/early US confirmation Labor Onset Stage 1 Date: 08/08/24 Labor Onset Stage 1 Time: 00:40 Labor Onset Stage 2 Date: 08/08/24 Labor Onset Stage 2 Time: 02:45 Delivery Date: 08/08/24 Delivery Time: 05:18 Gestational age (weeks): 38 Gestational age (days): 1 Placenta Delivery Date: 08/08/24 Placenta Delivery Time: 05:32 Delivered by: Darwin Daniel Delivery nurse: Liss Mccarty Other staff at delivery: Nursery Nurse Other staff at delivery: Nursery Nurse Other staff at delivery: Ana Greenberg Other staff at delivery: Chela Montgomery Delivery Method Delivery: Vaginal Delivery Type: Spontaneous Presentation: Vertex Position: OA Anesthesia Type Primary Anesthesia: Epidural Placenta Placenta Delivery: Spontaneous Placenta Cultures Obtained: No Placenta Sent for Examination: No Cord Sample: Cord Blood Obtained Lacerations #1: Perineal: 2nd degree Perineal repair Sutures used for repair: 3.0 Chromic EBL Estimated blood loss (ml): 200 Umbilical Cord Umbilical Vessels: 3 Nuchal Cord: Not Applicable Body Cord: Not Applicable Additional Procedures None Complications Complications: None [place] Data ([facility]) [place] Data Infant Gender: Male Weight Grams: 2810 1 Minute Total: 9 5 Minute Total: 9
--- NOTE | 2024-08-08 06:27 | ESDS_ITS ---
DS: Providers Provider Date of admission: 08/07/24 23:46 Primary care physician: Physician No Primary/Family Admitting Provider: Darwin Daniel MD Attending Provider on Admission: Darwin Daniel MD Attending Provider on DC: Darwin Daniel MD Discharging Provider: Darwin Daniel MD DS: Diagnosis Problem List Completed Was Problem List Reviewed/Reconciled?: Yes Summary/Hosp Course Time Spent with Patient Time attestation: Total time spent providing and/or coordinating discharge services: Exam Vital Signs Temp Pulse Resp BP Pulse Ox 97.6 F 90 17 115/60 97 08/07/24 23:34 08/08/24 06:16 08/07/24 23:34 08/08/24 06:16 08/08/24 05:16 Discharge Plan Plan Patient Disposition: HOME (Self Care) Patient condition on transfer: Stable Prescriptions/Referrals Prescriptions/Med Rec: New ibuprofen 600 mg tablet 600 mg PO Q6H PRN (Reason: pain) Qty: 30 0RF Continued albuterol sulfate 90 mcg/actuation HFA aerosol inhaler 2 puff inhalation QID Qty: 18 0RF PNV cmb#95-ferrous fumarate-FA [] 28 mg iron- 800 mcg tablet 1 tab PO QDAY Patient Comments: TAKE 1 TABLET BY MOUTH EVERY DAY Discontinued cefuroxime axetil 500 mg tablet 500 mg PO Q12H Qty: 14 0RF folic acid 1 mg tablet 1,000 mcg PO DAILY Referrals: No Primary/Family,Physician [Primary Care Provider] - Patient/Caregiver Discharge Instructions Discharge Activity: activity as tolerated Other Discharge Activity Instructions:: Follow up office 6 weeks Education Materials: After a Vaginal , Breast Care After , Incision Care After Vaginal , Nutrition While Print Language: Malaysian Stand Alone Forms: Luz Award Info., Patient Portal Info Letter Discharge Order Discharge Orders: Discharge (Routine); Ordered 08/09/24 Ordered By: Darwin Daniel Planned Discharge Date 08/09/24
[2024-08-08 11:29] LABS: Basophils % (Auto) 0 % (0-2.5); Eosinophils % (Auto) 0 % (0-10); Hematocrit 31.1 % (36.0-46.0); Hemoglobin 10.7 g/dL (12.0-16.0); Immature Granulocytes % (Auto) 1 % (0-0); Immature Granulocytes Auto 0.21 Thou/mm3 (0.00-0.00); Lymphocytes # (Auto) 2.3 Thou/mm3 (1.0-4.8); Lymphocytes % (Auto) 13 % (10-50); Mean Corpuscular HGB Conc 34.4 g/dl (31.0-37.0); Mean Corpuscular Hemoglobin 29.3 pg (25.0-35.0); Mean Corpuscular Volume 85 fL (80-100); Monocytes # (Auto) 1.6 Thou/mm3 (0.0-0.8); Monocytes % (Auto) 9 % (0-12); Neutrophils # (Auto) 13.1 Thou/mm3 (1.8-7.7); Neutrophils % (Auto) 76 % (37-80); Nucleated Red Blood Cell % 0 /100 WBC (0); Platelet Count 177 Thou/mm3 (140-440); RDW Standard Deviation 48.4 fL (36.4-46.3); Red Blood Count 3.65 Miln/mm3 (4.00-5.20); White Blood Count 17.3 Thou/mm3 (3.6-11.0)
[2024-08-09 03:54] VITALS: BP 128/86; PULSE 81; RESP 18; TEMP 36.7; O2SAT 97
--- NOTE | 2024-08-09 08:11 | ESPR_ITS ---
RE: SHAINA URBINA : 2000 DATE OF SERVICE: 08/09/2024 SUBJECTIVE: day #1. The patient denies any problems or complaints. She is voiding. She is ambulating. She is tolerating diet. She is passing flatus. She denies any excessive vaginal bleeding. She denies any dizziness or lightheadedness. She denies any chest pain, palpitations, shortness of breath or lower extremity pain. OBJECTIVE: Vitals Signs: Blood pressure is 128/86, heart rate 81, respirations 18, temperature 98.0, pulse ox is 97% on room air. Lungs: Lungs are clear to auscultation bilaterally. Heart: Regular rate and rhythm. Abdomen: Fundus is firm, nontender. Extremities: Nontender. LABORATORY DATA: Hemoglobin pre-delivery is 12.5, post-delivery is 10.7. ASSESSMENT: day #1. Status post spontaneous vaginal delivery. PLAN: Discharge home. Discharge instructions given. Follow up in the office in six weeks. DT: 07:34:10 TT: 08:09:00 Ref: [id number] - TID: [id number]
[2024-08-09 08:19] VITALS: BP 128/67; PULSE 85; RESP 18; TEMP 36.7; O2SAT 97
--- NOTE | 2024-08-10 07:24 | ESHP_ITS ---
RE: SHAINA URBINA : 2000 DATE OF ADMISSION: 08/08/2024 HISTORY OF PRESENT ILLNESS: This is a 23-year-old 1, para 0 with due date of 08/21 with intrauterine at 38 weeks and 1 day, who presents to labor and delivery complaining of contractions. She denies any leaking or bleeding. She reports normal movement. She had a maternal medicine ultrasound on 08/19, showing overall growth at the 39th percentile. She recently was treated for urinary tract infection due to enterococcus infection. In addition, the patient was hospitalized in June for a pilonidal cyst with abscess that required IV antibiotics over the course of 3 days. She had a positive fibronectin on 07/04 and she received betamethasone on 07/04 and 07/05. The patient has CREST syndrome which was diagnosed based on labs only. The patient is asymptomatic. Her labs were within normal limits. ALLERGIES: NO KNOWN DRUG ALLERGIES. MEDICATIONS: 1. multivitamin 1 p.o. daily. 2. Aspirin 81 mg 1 p.o. daily. PAST MEDICAL HISTORY: CREST syndrome, acne, pilonidal cyst, enterococcus urinary tract infection. FAMILY HISTORY: Breast cancer, heart disease. PAST SURGICAL HISTORY: Denies. REVIEW OF SYSTEMS: She denies any chest pain, palpitations, cough, fever, shortness of breath or lower extremity pain. She denies any headache, change in vision or right upper quadrant pain. PHYSICAL EXAMINATION: VITAL SIGNS: Blood pressure 123/77, heart rate 70, respirations 18, temperature 98.6. HEENT: Oropharynx and sclerae are clear. LUNGS: Clear to auscultation bilaterally. HEART: Regular rate and rhythm. ABDOMEN: Gravid, consistent with estimated weight 7-1/4 pounds. PELVIC: See RN notes. EXTREMITIES: Nontender. SKIN: No gross rashes or lesions. NEUROLOGIC: No focal deficit. ASSESSMENT AND PLAN: Intrauterine at 38 weeks and 1 day, active labor, anticipates spontaneous vaginal delivery. Informed consent was obtained. The patient was made aware of the risks, complications, alternatives and benefits of the proposed procedure and she agrees. She is aware of the risk of operative vaginal delivery and delivery and agrees with these modes of delivery if indicated. DT: 05:00:54 TT: 05:20:00 Ref: [id number] - TID: [id number]
== END 2024-08-09 09:45 | disposition home or self-care (01) | DRG 560 ==
LOC: S4SX 08-08 05:41 → S4NX 08-08 08:53
PROVIDERS: Admitting Provider Specialist; Visit Provider Specialist
DX: O70.1 Second degree perineal laceration during delivery (principal); Z37.0 Single live birth; Z3A.38 38 weeks gestation of pregnancy; M34.1 CR(E)ST syndrome; Z79.82 Long term (current) use of aspirin; Z87.440 Personal history of urinary (tract) infections
CPT/HCPCS: 36415; 59409; 80053; 81001; 84112; 84550; 85025; 85384; 85610; 85730; 86780; 86850; 86900; 86901; 94762; J2590; J2795; J3010; J3105; J7120; A9270

== ENCOUNTER → 2025-03-09 | Outpatient (CLI) | payer MEDICAID, OTHER, SELFPAY ==
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
== END | disposition home or self-care (01) ==
PROVIDERS: PCP Registered Nurse Community Health; Referring Provider Registered Nurse Community Health; Visit Provider Registered Nurse Community Health
DX: S43.401A Unspecified sprain of right shoulder joint, initial encounter (principal); S13.4XXA Sprain of ligaments of cervical spine, initial encounter; V89.2XXA Person injured in unspecified motor-vehicle accident, traffic, initial encounter
CPT/HCPCS: 72050; 73030